=== PATIENT | male | born 1950 | race Caucasian/White ===

== ENCOUNTER 2016-12-07 13:38 | Day surgery (SDC) | payer OTHER ==
[~2016-12-07] VITALS: Ht 180.3 cm; Wt 111.0 kg
[~2016-12-07 13:38] MED LIST: 0.9% Sodium Chloride 1,000 ML IV PRN; AMLO10TA3 PO; ASPI-973 PO; ATEN25TA PO; CHOL200047 PO; DOXY20TA5 PO; HYG25 PO; INSLIS SUBQ; INSU100V7 SUBQ; LOSA100T29 PO; MULT-666 PO; SIMV20TA4 PO; Sodium Chloride LOK Flush 10 mL Syringe IV PRN; TEST200V20 IM; fentaNYL-PF 50 mCg/mL 2 mL Inj IVPUSH PRN
[2016-12-07 14:27] VITALS: BP 131/71; PULSE 71; RESP 16; O2SAT 95
--- NOTE | 2016-12-07 16:17 | PCM.ENDCOL ---
Colonoscopy Date of Service: Dec 07, 2016 Physician El Navarrete MD Pre Procedure Diagnosis: Screening family history of colon cancer personal history of colon polyp Post Procedure Dx & Findings: Polyp hemorrhoids and diverticuli Procedure Colonoscopy Prep adequate Withdrawal time 13 minutes After unremarkable rectal examination the Olympus video colonoscope was inserted patient's anal canal and was advanced to cecum. Landmarks were identified including the ileocecal valve and appendiceal orifice. Scope was withdrawn systematically. Visualized colonic mucosa showed healthy shiny mucosa with normal healthy-appearing vasculature. In the ascending colon there was a 1 mm polyp which was removed completely using cold forceps. In the transverse colon there was a 1 mm polyp which was removed completely using cold forceps. In the sigmoid colon, there was a 2-3 mm polyp which was removed completely using cold snare. In the rectum there were three 1 mm polyps which were all removed completely using cold forcep. In the sigmoid colon there were a few small diverticula. In the rectum retroflexion was done which showed hemorrhoids. Anal canal was inspected carefully on the way out and hemorrhoids noted. Impression Polyps 6 status post complete removal Diverticula Hemorrhoids Recommendation Repeat colonoscopy 3 years Diverticular diet Presedation Assessment Risks and Benefits Informed consent was obtained from the patient after all risks and benefits including but not limited to drug reaction, infection, pain, bleeding, perforation, as well as alternatives were discussed. Patient monitoring Continuous pulse oximetry, cardiac monitoring, blood pressure monitoring, IV access, and oxygen at 2L per nasal cannula. Periprocedural Fentanyl: Fentanyl 100mcg Incrementally Midazolam: Midazolam 5mg Incrementally Complications There were no periprocedural complications identified. Post Procedure Plan Post Procedure Recommendations 1. Restrict activities today. 2. Resume normal activities in the morning. 3. Resume medications. 4. Patient informed of normal post procedure side effects as bloating, drowsiness, blood streaking in the stool. 5. average risk CRCS. If colon polyps come back as: -Hyperplastic- can repeat colonoscopy in 10 years -Tubular adenoma- repeat colonoscopy in 5 years -Tubulovillous/villous adenoma- repeat colonoscopy in 3 years -If any dysplasia- return to clinic as soon as possible 6. Please don't hesitate to call me with any questions. El Navarrete MD Dec 07, 2016 16:17
[2016-12-07 16:24] VITALS: BP 140/64; PULSE 68; RESP 16; O2SAT 96
[2016-12-07 16:26] VITALS: BP 121/76; PULSE 66; RESP 16; O2SAT 96
--- NOTE | 2016-12-09 13:50 | PATH ---
SURGICAL PATHOLOGY Attending Physician:El Navarrete M.D. CASE STATUS: Signed Out PATIENT NAME: SILAS CAO PID: [id number] : 1950 DATE COLLECTED:12/07/2016 00:00 SPECIMEN: 1: Colon, Biopsy 2: Colon, Biopsy 3: Colon, Biopsy 4: Rectum, Biopsy CLINICAL HISTORY: 1). ASCENDING COLON POLYP X1 2). TRANSVERSE COLON POLYP 3). SIGMOID COLON POLYP 4). RECTUM POLYP FINAL DIAGNOSIS: 1.ASCENDING COLON POLYP: TUBULAR ADENOMA. 2.TRANSVERSE COLON POLYP: TUBULAR ADENOMA. 3.SIGMOID COLON POLYP: HYPERPLASTIC POLYP. 4.RECTUM POLYP: HYPERPLASTIC POLYP INVOLVING TWO BIOPSY FRAGMENTS. ICD10 CODE D12.2 GROSS DESCRIPTION: The specimen is received in four formalin filled containers labeled with the patient's name. 1). The specimen is sublabeled "ascending colon polyps x1" and consists of a 0.3 x 0.2 x 0.2 CM portion of tissue which is entirely submitted in cassette 1A. 2). The specimen is sublabeled "transverse colon polyp" and consists of a 0.1 x 0.1 x 0.1 CM portion of tissue which is entirely submitted in cassette 2A. 3). The specimen is sublabeled "sigmoid colon polyp" and consists of a 0.4 x 0.4 x 0.3 CM portion of tissue which is entirely submitted in cassette 3A. 4). The specimen is sublabeled "rectum polyp" and consists of 3 portions of tissue which aggregate to 0.3 x 0.3 x 0.2 CM. The specimen is entirely submitted in cassette 4A. 12/08/2016 DAC MICRO DESCRIPTION: See diagnosis. ICD-9 CODES: CPT CODES: 1: 61000 2: 38367 3: 97897 4: 37984 Electronically Signed Out Ga Diaz MD [facility] Pathology [facility] [address] [facility], [place] [address] Technical component performed at [facility], [facility] [address], [place], [address]
== END 2016-12-07 23:59 | disposition home or self-care (01) ==
LOC: END 13:38
PROVIDERS: ATTEND Internal Medicine
DX: Z12.11 Encounter for screening for malignant neoplasm of colon (principal); D12.2 Benign neoplasm of ascending colon; D12.3 Benign neoplasm of transverse colon; K63.5 Polyp of colon; K62.1 Rectal polyp; K57.30 Diverticulosis of large intestine without perforation or abscess without bleeding; K64.8 Other hemorrhoids; Z86.010 Personal history of colon polyps; Z80.0 Family history of malignant neoplasm of digestive organs; Z87.891 Personal history of nicotine dependence; Z79.82 Long term (current) use of aspirin; Z79.899 Other long term (current) drug therapy; Z79.4 Long term (current) use of insulin
CPT/HCPCS: 45380; 45385; 99153; G0500; J2250; J3010; J7030